=== PATIENT | male | born 1955 | race Caucasian/White ===

== ENCOUNTER → 2023-07-09 | Outpatient (CLI) | payer MEDICARE ==
--- NOTE | 2023-08-13 09:28 | EM ---
EVENT MONITOR The patient was monitored for 30 days. The baseline rhythm appeared to be sinus mechanism. The patient did have multiple episodes of paroxysmal atrial tachycardia noted. The patient did have multiple episodes of ventricular arrhythmia mainly in the terms of PVC as well as ventricular bigeminy and also ventricular trigeminy and short runs of nonsustained ventricular tachycardia noted. No significant sinus pause or sinus arrest seen. CONCLUSION: 1. This is a 30-day event monitor. 2. The baseline rhythm is a sinus mechanism. 3. This study is very abnormal. 4. The patient did have multiple episodes of paroxysmal atrial tachycardia. 5. Ventricular arrhythmia noted in terms of PVC and ventricular bigeminy and ventricular trigeminy and runs of nonsustained ventricular tachycardia. 6. No significant sinus pause or sinus arrest seen. MMODL / IJN: [id number] /
== END | disposition home or self-care (01) ==
LOC: RADECHMAIN 07:31
PROVIDERS: ATTEND Family Medicine
DX: I47.19 Other supraventricular tachycardia (principal); I49.3 Ventricular premature depolarization; I49.8 Other specified cardiac arrhythmias; R55 Syncope and collapse
CPT/HCPCS: 93270

== ENCOUNTER → 2023-10-04 | Outpatient (CLI) | payer MEDICARE ==
[2023-10-04 15:49] LABS: ALT 42 U/L (10-49); AST 26 U/L (14-35); Blood Urea Nitrogen 15.3 mg/dL (9.0-27.0); Calcium 9.8 mg/dL (8.7-10.3); Carbon Dioxide 27.9 mmol/L (21.6-31.8); Chloride 103 mmol/L (96-109); Chol/HDL Ratio 3.28 Ratio; Glucose 101 mg/dL (70-110); LDL Cholesterol,Calculated 64.1 mg/dL (0.0-131.0); Potassium 4.8 mmol/L (3.5-5.5); Sodium 141 mmol/L (135-145)
== END | disposition home or self-care (01) ==
LOC: LABWHC1 08:58
PROVIDERS: ATTEND Internal Medicine Cardiovascular Disease
DX: E78.2 Mixed hyperlipidemia (principal); R55 Syncope and collapse
CPT/HCPCS: 36415; 80048; 80061; 84443; 84450; 84460